=== PATIENT | male | born 1995 | race Two or more races ===

== ENCOUNTER 2017-02-14 10:20 | Emergency (ER) | payer OTHER ==
[~2017-02-14] VITALS: Ht 154.9 cm; Wt 72.6 kg
--- NOTE | 2017-02-14 10:37 | Emergency Room Report ---
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 N Clinical Suspician of Infection? N Mental Status: 1 - Regular (Normal Baseline) Sepsis Risk:Low Sepsis Risk Have you (or family members/close friends) recently traveled outside the [place]? N If Yes, where/when: Have you had exposure to infectious disease within the past month? TB? Other? Specify: Patient is hard of a croup of workers that he ingested a cookie that was laced with marijuana or marijuana-like substance I have heard from multiple individuals via translators and EMS and law enforcement. This particular individual ate 2 cookies where everyone else only ate a little bit or one cookie. He denies any pain he states he feels agitated and shaky and he states he feels nauseated he did vomit prior to arrival. 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 He denies any pain. History of present illness is somewhat limited secondary to the patient's desire to give it and is intoxicated state ALLERGIES Coded Allergies: No Known Allergies (02/14/17) History Medical History Immunization Hx Ped.Immunizations UTD Yes DT/Tetanus 1-4 Years Ago Surgical Hx Previous Surgery?N Social History Smoking Hx Smoker: Current Some Day Smoker Tobacco: Yes Type Cigarettes Packs/day < 1 Pack Are you/the child exposed to second-hand smoke: No Alcohol Alcohol: No Review of Systems All Other Systems Reviewed and Negative Physical Exam Vital Signs Vital Signs Date Time Temp Pulse Resp B/P Pulse O2 O2 Flow FiO2 Ox Delivery Rate 02/14 1415 127 18 118/60 95 02/14 1323 120 18 113/61 95 02/14 1207 114 18 112/66 97 02/14 1104 18 02/14 1025 97.0 132 18 137/82 98 General Appearance: Nontoxic patient is somewhat agitated in bed akasthesia like Head: Normocephalic, without obvious abnormality, atraumatic. Eyes: conjunctiva/corneas clear ENT: Mucous membranes moist. Neck: No jugular venous distention. Cardiac: regular rate and rhythm Lungs: Clear to auscultation bilaterally Abdomen: Nontender, Nondistended, positive bowel sounds, no rebound : No CVA tenderness Extremities: no edema Musculoskeletal: No chest wall tenderness Skin: No rashes or lesions to exposed skin. Neurologic: Alert. No gross focal deficits Psychiatric: Normal affect (Noe BELL, Alessio) General Appearance mild distress Respiratory Status No: respiratory distress. Cardiovascular normal exam Neurologic alert Medical Decision Making LABS/Meds/Orders Pt receiving controlled substance in ED? No Comment Potassium is come back low. Replacement is ordered. 1144 I have discussed with poison control to see if there is any regional pattern of any overdose here that I have to individuals with potassiums at 2.7 and lasted the same substance which is likely marijuana plus some other unknown substance, and to get thier input pt without complaints cxr read by radiolo 307 potassium is normal now 310 patient is wide awake, smiling, no complaints now. Results/Orders Laboratory Tests 02/14/17 1414: Potassium 4.3 02/14/17 1236: ABG pH 7.37, ABG pCO2 (Temp Corrct 44.3, ABG pO2 (Temp Correct 88.8, ABG HCO3 25.2, ABG Total CO2 26.6, ABG O2 Sat (Calculated) Pending, ABG Base Excess 96.5 H, Eduardo Test ACCEPTABLE, Blood Gas Comments R RADIAL 02/14/17 1030: Troponin I < 0.02, Opiates Screen NEGATIVE, Urine Methadone Screen NEGATIVE, Barbiturates NEGATIVE, Phencyclidine Screen NEGATIVE, Amphetamines Screen NEGATIVE, Benzodiazepines Screen NEGATIVE, Cocaine Screen NEGATIVE, Marijuana ( THC) Screen POSITIVE H 02/14/17 1030: Sodium 134 L, Potassium 2.7 *L, Chloride 99, Carbon Dioxide 25, BUN 14, Creatinine 1.0, Estimated Creat Clear 118, Estimated GFR (MDRD) 93, Glucose 253 H, Calcium 8.9, Total Bilirubin 0.5, AST 19, ALT 24, Alkaline Phosphatase 83, Total Protein 7.5, Albumin 4.0, Globulin 3.5 H, Albumin/Globulin Ratio 1.1, WBC 13.3 H, RBC 5.06, Hgb 16.0, Hct 46.9, MCV 92.8, RDW 11.7, Plt Count 379, MPV 8.2, Gran % 53.9, Gran # 7.2, Lymphocytes % 38.9, Monocytes % 3.9, Eosinophils % 2.6, Basophils % 0.7, Lymphocytes # 5.2 H, Monocytes # 0.5, Eosinophils # 0.3, Basophils # 0.1, PUBS MCHC 34.0, MCH 31.6 H, Salicylates 0.5 L, Acetaminophen 0 L, Alcohols 4, Urine Color YELLOW, Urine Appearance CLEAR, Urine pH 5.5, Ur Specific Ezel >= 1.030, Urine Protein TRACE H, Urine Ketones TRACE H, Urine Blood NEGATIVE, Urine Nitrate NEGATIVE, Urine Bilirubin NEGATIVE, Urine Urobilinogen 0.2, Ur Leukocyte Esterase NEGATIVE, Urine RBC NONE, Urine WBC OCC, Ur Squamous Epith Cells NONE, Urine Bacteria 2+, Hyaline Casts OCC, Urine Glucose 3+ H Current Medication Orders Sig/Manan Start time Last Medication Dose Route Stop Time Status Admin Potassium Chloride 40 MEQ ONCE ONE 02/14 1145 DC PO 02/14 1146 Potassium Chloride/ 100 ML ONCE ONE 02/14 1145 DC 02/14 Water IV 02/14 1344 1203 Albuterol/Ipratropium 0 .STK-MED ONE 02/14 1104 DC INH Albuterol/Ipratropium 3 ML ONCE ONE 02/14 1100 CAN INH 02/14 1101 Furosemide 40 MG ONCE ONE 02/14 1100 CAN IV 02/14 1101 Levofloxacin/Dextrose 150 ML ONCE ONE 02/14 1100 CANr IV 02/14 1229 Lorazepam 0 .STK-MED ONE 02/14 1038 DC .ROUTE Ondansetron HCl 0 .STK-MED ONE 02/14 1038 DC .ROUTE Lorazepam 0.5 MG ONCE ONE 02/14 1030 DC 02/14 IV 02/14 1031 1104 Ondansetron HCl 4 MG ONCE ONE 02/14 1030 DC 02/14 IV 02/14 1031 1103 Sodium Chloride 1,000 ML .Q1H1M 02/14 1030 DC 02/14 IV 02/14 1130 1105 Sodium Chloride 10 ML PRN PRN 02/14 1030 AC IV 02/15 1027 Orders Procedure Date/time Status POTASSIUM 02/14 1403 Complete RT Aerosol Treatment, Provide 02/14 1244 Active ARTERIAL BLOOD GAS REQUEST 02/14 1201 Active TROPONIN I 02/14 1154 Complete RT REQUEST DUONEB 02/14 1051 Active RESP THERAPY REQUEST (GENERAL) 02/14 1050 Active URINARY CATHETER INSERT 02/14 1035 Active URINALYSIS/COMPLETE 02/14 1035 Complete SALICYLATE 02/14 1035 Complete ALCOHOL 02/14 1035 Complete Acetaminophen 02/14 1035 Complete CULTURE, URINE 02/14 1030 Active DRUG ABUSE SCREEN (TRIAGE) 02/14 1029 Complete CBC WITH AUTO DIFF 02/14 1029 Complete CHEM 12 PROFILE 02/14 1029 Complete 12 LEAD EKG-BESSON (INITIAL) 02/14 UNK Active CM/EKG CM/transformation architect Rhythm Sinus Tachycardia Rate 122 Ectopy No Comments ER electrocardiogram read by myself sinus tachycardia at QT corrected 444 normal axis and nonspecific electrocardiogram Departure Departure Time of Disposition 1509 Disposition DC Home or Self Care(routine) Clinical Impression Primary Impression: Drug ingestion Qualifiers: Encounter type: initial encounter Injury intent: accidental or unintentional Qualified Code: T50.901A - Poisoning by unspecified drugs, medicaments and biological substances, accidental (unintentional), initial encounter Secondary Impressions: Hypokalemia Condition STABLE Referrals NO REFERRAL Patient Instructions DI for Drug Abuse and Drug Addiction Additional Instructions return if symptoms worsen or any problems Discharge Counseling Counseled pt/family regarding diagnosis, test results, R/B of controlled subst., home care, follow up needs ED Critical Care Critical Care Yes Time spent 30-74 min Vital system(s) involved: Metabolic Failure I was present at bedside for Coordinating pt's care, Interpreting EKGs/Strips , During my initial exam, Reviewing lab results, Reviewing old records, Discussing pt condition, For re-examinations If Critical Care minutes are documented, the time involved in the performance of seperately reportable procedures was not counted toward critical care time documented. I directly delivered medical care to this critically ill and/or injured patient. Timely evaluation and treatment was necessary to address the significant organ system(s) dysfunction present in this patient. at 1511
[2017-02-14 10:57] LABS: LYMPH # 5.2 K/mm3 (0.7-4.5); LYMPH % 38.9 % (10-50)
[2017-02-14 11:04] LABS: URINE BILIRUBIN - DIPSTICK NEGATIVE (NEG); URINE BLOOD NEGATIVE (NEG)
[2017-02-14 11:12] LABS: AMPHETAMINES/METAMPHETAMINES NEGATIVE ng/mL (<1000)
[2017-02-14 12:36] LABS: ALLEN'S TEST ACCEPTABLE; ARTERIAL ABE 96.5 MMOL/L (-2.4-+2.3); ARTERIAL PO2 88.8 MMHG (80-100); ARTERIAL TCO2 26.6 MMOL/L (23-27); OXYGEN ROOM AIR
--- OUTSIDE RECORDS SUMMARY | 2017-02-14 12:46 | External Medical Summary Rpt | CCD ---
Demographics Preferred Language Spanish Marital Status Unknown Jain Affiliation Unknown Race Unknown Ethnic Group Unknown Author Author , PAXTON MATTA Address Unknown Phone Immunization No patient found.
--- OUTSIDE RECORDS SUMMARY | 2017-02-14 12:46 | External Medical Summary Rpt | CCD ---
Demographics Preferred Language Albanian Marital Status Unknown Anglican Affiliation Unknown Race Unknown Ethnic Group Unknown Author Author , PAXTON MATTA Address Unknown Phone Immunization No patient found.
--- OUTSIDE RECORDS SUMMARY | 2017-02-14 12:46 | External Medical Summary Rpt | CCD ---
Author Author , PAXTON MATTA Address Unknown Phone [email or web address] Purpose Continuity of Care Document - through 2016
--- OUTSIDE RECORDS SUMMARY | 2017-02-14 12:46 | External Medical Summary Rpt | CCD ---
Author Author [employer] Organization [employer] Address Unknown Phone Unavailable Purpose Continuity of Care Document - through 2016
--- OUTSIDE RECORDS SUMMARY | 2017-02-14 12:46 | External Medical Summary Rpt | CCD ---
Author Author , PAXTON MATTA Address Unknown Phone [email or web address] Purpose Continuity of Care Document - through 2016
--- NOTE | 2017-02-14 15:00 | RADIOLOGY REPORT PS360 ---
CHEST-PORTABLE HISTORY: POSSIBLE OD ORDERING PHYSICIAN: Alessio Liu MD PATIENT AGE: 21 years COMPARISON: None available FINDINGS: The cardiomediastinal silhouette and pulmonary vascularity are within normal limits. The lungs are clear without infiltrates, suspicious nodules, or pleural effusions. No acute bony abnormalities. IMPRESSION: Negative chest, no acute finding
[2017-02-14 15:21] VITALS: BP 118/60
== END 2017-02-14 16:15 | disposition home or self-care (01) ==
LOC: ER 10:20 → EDBD 10:55 → ER 10:55
PROVIDERS: Emergency Medicine
DX: T50.901A Poisoning by unspecified drugs, medicaments and biological substances, accidental (unintentional), initial encounter (principal); E87.6 Hypokalemia
CPT/HCPCS: J2405